=== PATIENT | female | born 1955 | race Caucasian/White ===

== ENCOUNTER 2018-12-19 20:44 | Emergency (ER) | payer OTHER ==
[~2018-12-19] VITALS: Ht 175.3 cm; Wt 68.2 kg
--- NOTE | 2018-12-19 21:03 | NUR ---
Dr Randhawa made aware of patient's status, no new orders at this time. Patient resting in bed, no signs of distress noted, all safety measures in place.
[2018-12-19] MEDS ORDERED: HYDROcodone/acetaminophen 5mg/325mg tablet PO ONE (21:30)
[2018-12-19] MEDS ORDERED: cephalexin 250mg capsule PO ONE (21:55)
[2018-12-19 22:21] VITALS: BP 96/71
--- NOTE | 2018-12-19 22:34 | NUR ---
WAITING FOR AN ETA FROM [facility] TO TRANSFER TO [facility].
--- NOTE | 2018-12-19 22:37 | NUR ---
REPORT GIVEN TO SABINO WILKINSON AT [facility] AT THIS TIME. PATIENT AWAKE, ALERT, NO SIGNS OF DISTRESS NOTED, BP 91/70, HR 110, SPO2 98% ON ROOM AIR, RR 17.
--- NOTE | 2018-12-19 22:40 | NUR ---
BEDSIDE REPORT GIVEN TO [facility] AT THIS TIME. ALL QUESTIONS AND CONCERNS ADDRESSED, PATIENT AWAKE, ALERT, NO SIGNS OF DISTRESS NOTED, VSS, C COLLAR IN PLACE, IV TO LAC AND EDUARDO INTACT.
== END 2018-12-19 23:29 | disposition short-term general hospital (02) ==
LOC: ER 20:47
DX: S06.6X0A Traumatic subarachnoid hemorrhage without loss of consciousness, initial encounter (principal); S01.01XA Laceration without foreign body of scalp, initial encounter; S50.312A Abrasion of left elbow, initial encounter; R53.1 Weakness; W18.09XA Striking against other object with subsequent fall, initial encounter; Y93.89 Activity, other specified; Y92.89 Other specified places as the place of occurrence of the external cause; Y99.8 Other external cause status
CPT/HCPCS: 70450; 72125; 93005; 99285